=== PATIENT | male | born 1940 | race Asian ===

== ENCOUNTER 2017-09-03 14:03 | Inpatient (IN) | payer MEDICARE ==
[~2017-09-03] VITALS: Ht 157.5 cm; Wt 64.1 kg
[2017-09-03] MEDS ORDERED: AMLO10TA2 PO (15:14)
[2017-09-03] MEDS ORDERED: CARB100T4 PO (15:17)
[2017-09-03] MEDS ORDERED: ONDANSETRON 2MG/ML, 2ML IVPush ONE (15:30)
[2017-09-03] MEDS ORDERED: MORPHINE SULFATE 4 MG/ML, 1ML IVPush PRN (15:30)
[2017-09-03] MEDS ORDERED: MORPHINE SULFATE 4 MG/ML, 1ML ONE (15:34)
[2017-09-03] MEDS ORDERED: ONDANSETRON 2MG/ML, 2ML ONE (15:35)
[2017-09-03 15:55] LABS: HEMATOCRIT 41.5 % (39.2-51.8); HEMOGLOBIN 14.2 g/dL (13.7-18.0); WHITE BLOOD COUNT 12.1 x10^3/uL (3.4-10)
[2017-09-03] MEDS ORDERED: SODIUM CHLORIDE 0.9% 1,000 ML IV ONE (16:00)
[2017-09-03 16:04] LABS: BLOOD UREA NITROGEN 20 mg/dL (7-18)
[2017-09-03] MEDS ORDERED: SODIUM CHLORIDE FLUSH 10ML SYR IVF ONE (16:30)
[2017-09-03] MEDS ORDERED: POTASSIUM CHLORIDE 20 MEQ in SODIUM CHLORIDE 0.9% 250 ML IV ONE (17:00)
[2017-09-03] MEDS ORDERED: ACETAMINOPHEN 325 MG TABLET PO PRN ×2 (18:30→19:00)
[2017-09-03] MEDS ORDERED: ONDANSETRON 2MG/ML, 2ML IVPush PRN (19:00)
[2017-09-03] MEDS ORDERED: ENALAPRILAT 1.25 MG/ML, 2ML IVPush PRN (19:00)
[2017-09-03] MEDS ORDERED: DIPHENHYDRAMINE 25 MG CAPSULE PO PRN (19:00)
[2017-09-03] MEDS ORDERED: OXYcodone IR 5MG TABLET PO PRN (19:00)
[2017-09-03] MEDS ORDERED: GUAIFENESIN/DM 200-20MG, 10ML UDC PO PRN (19:00)
[2017-09-03 20:28] VITALS: BP 107/66
[2017-09-03] MEDS: CARBIDOPA/LEVODOPA 25 MG/100 MG TABLET PO SCH (22:10)
[2017-09-03] MEDS: FAMOTIDINE 20 MG/2 ML IVPush SCH (22:10)
[2017-09-04] MEDS: morphine SULFATE 10 MG/ML, 1ML IVPush PRN ×3 (08:19→17:09)
[2017-09-04] MEDS ORDERED: SENNA/DOCUSATE TABLET PO SCH (09:00)
[2017-09-04 10:53] VITALS: BP 108/64
[2017-09-04] MEDS: FAMOTIDINE 20 MG/2 ML IVPush SCH ×2 (11:01→22:58)
[2017-09-04] MEDS: AMLODIPINE 5 MG TABLET PO SCH (11:01)
[2017-09-04] MEDS: CARBIDOPA/LEVODOPA 25 MG/100 MG TABLET PO SCH ×2 (11:03→22:59)
[2017-09-04 15:32] VITALS: BP 103/69
[2017-09-04 19:46] VITALS: BP 113/61
[2017-09-05] MEDS ORDERED: D5%-0.45% NACL 1,000 ML IV SCH
[2017-09-05 02:01] VITALS: BP 119/65
[2017-09-05 06:38] LABS: HEMATOCRIT 37.9 % (39.2-51.8); HEMOGLOBIN 12.9 g/dL (13.7-18.0); WHITE BLOOD COUNT 8.2 x10^3/uL (3.4-10)
[2017-09-05 06:40] LABS: BLOOD UREA NITROGEN 13 mg/dL (7-18)
[2017-09-05 08:09] VITALS: BP 128/71
[2017-09-05] MEDS: CARBIDOPA/LEVODOPA 25 MG/100 MG TABLET PO SCH ×2 (08:38→22:41)
[2017-09-05] MEDS: AMLODIPINE 5 MG TABLET PO SCH (08:38)
[2017-09-05] MEDS: SENNA/DOCUSATE TABLET PO SCH (08:38)
[2017-09-05] MEDS: FAMOTIDINE 20 MG/2 ML IVPush SCH ×2 (08:38→22:48)
[2017-09-05] MEDS: D5%-0.45NACL+KCL 40MEQ 1,000 ML IV SCH ×2 (09:47→23:01)
[2017-09-05 15:18] VITALS: BP 117/66
[2017-09-05] MEDS ORDERED: FENTANYL PF 100 MCG/2ML ONE ×2 (17:39→18:15)
[2017-09-05] MEDS ORDERED: CEFAZOLIN 1,000 MG ONE (17:40)
[2017-09-05] MEDS ORDERED: PROPOFOL 10 MG/ML, 20ML ONE (17:40)
[2017-09-05] MEDS ORDERED: ONDANSETRON 2MG/ML, 2ML ONE (17:40)
[2017-09-05] MEDS ORDERED: DEXAMETHASONE 4 MG/ML, 1ML ONE (17:40)
[2017-09-05] MEDS ORDERED: LIDOCAINE GEL 2%, 5ML ONE (17:42)
[2017-09-05] MEDS ORDERED: SUCCINYLCHOLINE 20 MG/ML, 10ML ONE (17:46)
[2017-09-05] MEDS ORDERED: GLYCOPYRROLATE 0.2MG/1ML, 5ML ONE (18:05)
[2017-09-05] MEDS ORDERED: hydrALAzine 20 MG/ML, 1ML IV PRN (18:30)
[2017-09-05] MEDS ORDERED: ONDANSETRON 2MG/ML, 2ML IVPush PRN (18:30)
[2017-09-05] MEDS ORDERED: ACETAMINOPHEN 325 MG TABLET PO PRN (18:30)
[2017-09-05] MEDS ORDERED: PROMETHAZINE 25 MG/ML, 1ML IV PRN (18:30)
[2017-09-05] MEDS ORDERED: DIAZEPAM 5 MG/ML, 2ML IVPush PRN (18:30)
[2017-09-05] MEDS ORDERED: MIDAZOLAM 1 MG/ML, 2ML IV PRN (18:30)
[2017-09-05] MEDS ORDERED: ALBUTEROL/IPRATROPIUM 2.5MG/0.5MG, 3 ML NPPB PRN (18:30)
[2017-09-05] MEDS ORDERED: MEPERIDINE/PF 25MG/0.5ML IVPush PRN (18:30)
[2017-09-05] MEDS ORDERED: HYDROmorphone 1 MG/ML, 1ML IV PRN (18:30)
[2017-09-05] MEDS ORDERED: LABETALOL 5MG/ML, 20ML IV PRN (18:30)
[2017-09-05] MEDS ORDERED: OXYcodone 5 MG/5 ML ORAL.SOL UDC PO PRN (18:30)
[2017-09-05] MEDS ORDERED: FENTANYL PF 100 MCG/2ML IV PRN (18:30)
[2017-09-05] MEDS ORDERED: OXYcodone 5 MG/5 ML ORAL.SOL UDC ONE (19:13)
[2017-09-05] MEDS ORDERED: OXYcodone/APAP 5/325MG TABLET PO PRN (21:00)
[2017-09-05] MEDS ORDERED: ONDANSETRON 2MG/ML, 2ML IV PRN (21:00)
[2017-09-05] MEDS ORDERED: morphine SULFATE 10 MG/ML, 1ML IV PRN (21:00)
[2017-09-05] MEDS ORDERED: HYDROcodone/APAP 7.5-325MG/15ML UDC PO PRN (21:00)
[2017-09-05] MEDS ORDERED: [UNRECOGNIZED DRUG - REMARK] MC SCH (21:00)
[2017-09-05] MEDS: DOCUSATE 100 MG CAPSULE PO SCH (22:41)
[2017-09-05] MEDS: KETOROLAC 30 MG/1 ML IV SCH (22:48)
[2017-09-05] MEDS: CEFAZOLIN PMX 2GM/100ML 100 ML IVPB SCH (23:57)
[2017-09-06 01:25] VITALS: BP 109/70
[2017-09-06] MEDS: D5%-0.45NACL+KCL 40MEQ 1,000 ML IV SCH (05:30)
[2017-09-06] MEDS: KETOROLAC 30 MG/1 ML IV SCH ×2 (05:47→16:05)
[2017-09-06 08:07] VITALS: BP 121/70
[2017-09-06] MEDS: CEFAZOLIN PMX 2GM/100ML 100 ML IVPB SCH (08:19)
[2017-09-06] MEDS: ENOXAPARIN 40 MG/0.4 ML SQ SCH (08:19)
[2017-09-06] MEDS: SENNA/DOCUSATE TABLET PO SCH (08:20)
[2017-09-06] MEDS: FAMOTIDINE 20 MG/2 ML IVPush SCH (08:20)
[2017-09-06] MEDS: AMLODIPINE 5 MG TABLET PO SCH (08:20)
[2017-09-06] MEDS: CARBIDOPA/LEVODOPA 25 MG/100 MG TABLET PO SCH ×2 (08:21→22:18)
[2017-09-06] MEDS: DOCUSATE 100 MG CAPSULE PO SCH ×2 (08:29→22:18)
[2017-09-06 11:21] LABS: BLOOD UREA NITROGEN 14 mg/dL (7-18)
[2017-09-06 14:00] VITALS: BP 123/68
[2017-09-06 18:43] VITALS: BP 107/61
[2017-09-06] MEDS: FAMOTIDINE 20 MG TABLET PO SCH (22:19)
[2017-09-07 02:26] VITALS: BP 108/66
[2017-09-07 06:39] LABS: HEMATOCRIT 33.1 % (39.2-51.8); HEMOGLOBIN 11.4 g/dL (13.7-18.0); WHITE BLOOD COUNT 9.6 x10^3/uL (3.4-10)
[2017-09-07] MEDS: ENOXAPARIN 40 MG/0.4 ML SQ SCH (06:46)
[2017-09-07 06:52] LABS: BLOOD UREA NITROGEN 15 mg/dL (7-18)
[2017-09-07 08:45] VITALS: BP 125/62
[2017-09-07] MEDS: AMLODIPINE 5 MG TABLET PO SCH (08:58)
[2017-09-07] MEDS: SENNA/DOCUSATE TABLET PO SCH (08:58)
[2017-09-07] MEDS: CARBIDOPA/LEVODOPA 25 MG/100 MG TABLET PO SCH ×2 (08:58→20:57)
[2017-09-07] MEDS: DOCUSATE 100 MG CAPSULE PO SCH ×2 (08:58→20:57)
[2017-09-07] MEDS: FAMOTIDINE 20 MG TABLET PO SCH ×2 (08:58→20:57)
[2017-09-07 14:45] VITALS: BP 117/65
[2017-09-07 15:35] VITALS: BP 116/67
[2017-09-07 19:37] VITALS: BP 126/70
[2017-09-08 01:11] VITALS: BP 116/67
[2017-09-08] MEDS: ENOXAPARIN 40 MG/0.4 ML SQ SCH (06:00)
[2017-09-08 06:38] VITALS: BP 119/69
[2017-09-08] MEDS: AMLODIPINE 5 MG TABLET PO SCH (08:19)
[2017-09-08] MEDS: DOCUSATE 100 MG CAPSULE PO SCH (08:19)
[2017-09-08] MEDS: SENNA/DOCUSATE TABLET PO SCH (08:20)
[2017-09-08] MEDS: CARBIDOPA/LEVODOPA 25 MG/100 MG TABLET PO SCH (08:20)
[2017-09-08] MEDS: FAMOTIDINE 20 MG TABLET PO SCH (09:00)
[2017-09-08 12:54] VITALS: BP 94/56
[2017-09-08] MEDS ORDERED: CARB1TAB22 PO (15:02)
[2017-09-08] MEDS ORDERED: OXYC1TAB7 PO (15:02)
[2017-09-08] MEDS ORDERED: ENOX40SY4 SQ (15:02)
[2017-09-08] MEDS ORDERED: PNEUMOCOCCAL 23 VACCINE IM-VACC ONE (16:30)
[2017-09-08 17:45] VITALS: BP 96/58
== END 2017-09-08 18:30 | disposition home or self-care (01) | DRG 481 ==
LOC: ED 16:38 → EDIP 16:46 → 4NOR 17:59
PROVIDERS: ADMIT Family Medicine; ATTEND Family Medicine
PROC: 0QS736Z Reposition Left Upper Femur with Intramedullary Internal Fixation Device, Percutaneous Approach (ICD-10-PCS; principal; 2017-09-05 17:30)
DX: S72.142A Displaced intertrochanteric fracture of left femur, initial encounter for closed fracture (principal); E87.1 Hypo-osmolality and hyponatremia; G20 Parkinson's disease; E87.6 Hypokalemia; I10 Essential (primary) hypertension; R33.9 Retention of urine, unspecified; W18.30XA Fall on same level, unspecified, initial encounter; Y93.89 Activity, other specified; Y92.89 Other specified places as the place of occurrence of the external cause
CPT/HCPCS: 36415; 71010; 76000; 80048; 82040; 85025; 85610; 85730; 90732; 93005; 96361; 96374; 96375; C1713; J0690; J1100; J1650; J1885; J2405; J2704; J3010; J3490; J0330; J2270; J3480; J7030; S0028

== ENCOUNTER 2021-05-30 07:47 | Emergency (ER) | payer MEDICARE ==
[~2021-05-30] VITALS: Ht 160 cm; Wt 55.0 kg
[~2021-05-30 07:47] MED LIST: AMLO-211 PO; CARB100T4 PO; CARB1TAB22 PO; ENOX40SY4 SQ; OXYC1TAB7 PO
--- NOTE | 2021-05-30 09:17 | NUR ---
Pt to be d/c'd. This RN called Elsy Scott twice without answer.
--- NOTE | 2021-05-30 10:03 | NUR ---
TASK RN. PT OK FOR D/C, THROUGHPUT RN CURRENTLY TRYING TO ARRANGE TRANSPORT BACK TO PT'S HOME FACILITY.
--- NOTE | 2021-05-30 10:38 | NUR ---
Sending facility requested UA. This RN straight cath'd per protocol with Nikhil, EMT at bedside to help hold pt.
[2021-05-30 10:39] VITALS: BP 156/79
[2021-05-30 10:44] LABS: MICROSCOPIC AUTO
== END 2021-05-30 11:46 | disposition home or self-care (01) ==
LOC: ED 09:30
DX: S09.8XXA Other specified injuries of head, initial encounter (principal); E78.5 Hyperlipidemia, unspecified; W06.XXXA Fall from bed, initial encounter; Y93.89 Activity, other specified; Y92.89 Other specified places as the place of occurrence of the external cause; Y99.8 Other external cause status
CPT/HCPCS: 70450; 81001; 82962; 99284